=== PATIENT | female | born 1955 | race Caucasian/White ===

== ENCOUNTER → 2018-10-31 | Outpatient (CLI) | payer OTHER ==
[~2018-10-31] MED LIST: ALBU18HF INH; CEFD300C37 PO; CHLO25CA9 PO; ESCI5TAB PO; MOME13HF INH
== END | disposition home or self-care (01) ==
LOC: CFH 15:27
PROVIDERS: ATTEND Family Medicine
DX: Z12.31 Encounter for screening mammogram for malignant neoplasm of breast (principal)
CPT/HCPCS: 77063; 77067

== ENCOUNTER 2018-12-19 07:01 | Outpatient (CLI) | payer OTHER | END 2018-12-19 23:59 | disposition home or self-care (01) | LOC: CFH 07:01 | PROVIDERS: ATTEND Internal Medicine | DX: K70.31 Alcoholic cirrhosis of liver with ascites (principal); K72.90 Hepatic failure, unspecified without coma | CPT/HCPCS: 76700 ==

== ENCOUNTER → 2019-11-01 | Outpatient (CLI) | payer OTHER | END | disposition home or self-care (01) | LOC: CFH 07:08 | PROVIDERS: ATTEND Internal Medicine | DX: K70.31 Alcoholic cirrhosis of liver with ascites (principal) | CPT/HCPCS: 76700 ==